=== PATIENT | male | born 1965 | race Caucasian/White ===

== ENCOUNTER → 2017-12-08 | Outpatient (CLI) | payer OTHER ==
--- NOTE | 2017-12-08 11:50 | MR ---
EXAMINATION TYPE: MR lumbar spine wo con DATE OF EXAM: 12/08/2017 COMPARISON: NONE HISTORY: Multiple sclerosis and low back pain TECHNIQUE: Multiplanar, multisequence images of the lumbar spine were acquired. FINDINGS: The lumbar vertebral body alignment is maintained. There is minimal anterior wedge compress ion deformity of the T12 vertebral body without bone marrow edema indicating chronicity. Height loss is less than 10% with no retropulsion. Conus medullaris is unremarkable terminating at L2. T2 hyperin tense and T1 hypointense 8mm right renal lesion is identified within the midpole and incompletely francesco racterized although this could represent a cyst. Multilevel disc desiccation is identified. L1-L2: There is a small left foraminal disc herniation beginning in the lateral recess extending into the left neural foramen creating mild left neural foraminal narrowing in combination with facet arth ropathy. This is superimposed upon a broad-based disc bulge without significant right neural foramina l narrowing or spinal canal stenosis. L2-L3: There is a right paracentral disc extrusion with caudal migration of disc material 9 mm. This creates impression upon the ventral thecal sac and mild spinal canal stenosis in combination with a b road-based disc bulge, facet arthropathy and ligamentum flavum buckling. There is minimal bilateral n eural foraminal narrowing. L3-L4: There is a right paracentral disc herniation that in combination with facet arthropathy and li gamentum flavum buckling create mild right neural foraminal narrowing, minimal left neural foraminal narrowing, and mild spinal canal stenosis. L4-L5: There is a left paracentral disc herniation or posterior broad-based disc bulge with facet art hropathy and ligamentum flavum buckling creating mild spinal canal stenosis, moderate right neural fo raminal narrowing, and mild left neural foraminal narrowing. L5-S1: There is a broad-based disc bulge and facet arthropathy that results in mild right neural fora mo narrowing and moderate left neural foraminal narrowing. No spinal canal stenosis. IMPRESSION: 1. Small left foraminal disc herniation at L1-L2 without significant spinal canal stenosis or neurofo raminal narrowing. 2. Right paracentral disc herniation with caudal migration of disc material 9 mm resulting in mild sp inal canal stenosis and minimal bilateral neural foraminal narrowing. 3. Right paracentral disc herniation at L3-L4 creating mild right neural foraminal narrowing, minimal left neural foraminal narrowing and mild spinal canal stenosis. 4. Left paracentral disc herniation at L4-L5 creating mild spinal canal stenosis, moderate right neur al foraminal narrowing and mild left neural foraminal narrowing. 5. Old minimal wedge compression deformity without retropulsion of the T12 vertebral body with height loss less than 10%. 6. Possible right subcentimeter renal cysts, too small to characterize and incompletely evaluated.
--- NOTE | 2017-12-12 09:16 | MR ---
EXAMINATION TYPE: MR brain wo/w con DATE OF EXAM: 12/08/2017 COMPARISON: Outside brain MRI October 05, 2015. HISTORY: Multiple sclerosis TECHNIQUE: Multiplanar, multisequence images of the brain and brainstem is performed without and with IV contras t, utilizing 6.5 mL intravenous Gadavist gadolinium contrast is administered intravenously. Demyelin ating disease protocol with additional Sagittal Flair sequence performed. FINDINGS: T2 Lesions Present : Yes Approximate Number of Lesions: Difficult to accurately count due to prominent confluent periventricul ar appearance Locations Identified : Deep and periventricular locations Size of Reference Lesion(s): 1. 1.1 cm x 1.0 cm x 0.7 cm on axial image 21 and sagittal image 26 right frontal deep white matter lesion not significant change from prior outside study axial image 17. 2. Stable 7 x 5 mm deep left parietal subcortical lesion axial image 25. Enhancing Lesion(s) Present: No T1 Hypointense Lesion(s) Present: Yes Change from Prior: Confluent right frontal subcortical lesions near axial image 19 are more prominent . A deep anterior left thalamic lesion near internal capsule axial image 16 current study is less pro minent or defined versus prior. Diffusion weighted images demonstrate no evidence of a recent infarct or other diffusion abnormality. There is no worrisome extra-axial fluid collection. The ventricular system and cisternal spaces ar e normal in size and appearance. The brain volume is age appropriate. Midline structures demonstrate normal morphology. The craniocervical junction appears within normal limits. Post contrast images demonstrate no abnormal enhancement. The dural venous sinuses appear pa tent. Mild mucosal thickening involving ethmoid sinuses bilaterally and knee inferior aspect of both maxillary sinuses is noted. The globes are intact bilaterally. IMPRESSION: Moderate to advanced white matter changes redemonstrated most likely on basis of known mu ltiple sclerosis. Some interval change with more prominent areas are noted. This may be related to te chnical differences however. No enhancing lesions are seen.
== END | disposition home or self-care (01) ==
LOC: RADMRIMAIN 10:07
PROVIDERS: ATTEND Psychiatry & Neurology Neurology
DX: M48.061 Spinal stenosis, lumbar region without neurogenic claudication (principal); M99.73 Connective tissue and disc stenosis of intervertebral foramina of lumbar region; M51.26 Other intervertebral disc displacement, lumbar region; R90.82 White matter disease, unspecified; G35 Multiple sclerosis; Z88.5 Allergy status to narcotic agent
CPT/HCPCS: 70553; 72148; A9581

== ENCOUNTER → 2018-02-06 | Outpatient (CLI) | payer MEDICARE, OTHER ==
--- NOTE | 2018-02-06 13:11 | XR ---
EXAMINATION TYPE: XR foot complete RT DATE OF EXAM: 02/06/2018 CLINICAL HISTORY: Right great toe mass TECHNIQUE: Frontal, lateral, and oblique images of the right foot are obtained. COMPARISON: None FINDINGS: There is no acute fracture/dislocation evident in the right foot. The joint spaces in the right foot appear demonstrate very minimal arthropathy with joint space narrowing and small marginal osteophytes of the distal interphalangeal joints and first metatarsophalangeal joint. Polypoid super ficial dorsal medial first digit soft tissue mass measures approximately 9 mm. No osseous irregularit y is seen deep to this to suggest aggressive osseous component. IMPRESSION: There is no acute fracture or dislocation in the right foot. Superficial dorsal medial d istal right first digit soft tissue mass with no evidence of osseous erosion or aggressive osseous co mponent.
== END | disposition home or self-care (01) ==
LOC: RADXRMAIN 11:23
PROVIDERS: ATTEND Podiatrist Foot Surgery
DX: R22.41 Localized swelling, mass and lump, right lower limb (principal)

== ENCOUNTER → 2018-03-18 | Outpatient (CLI) | payer MEDICARE, OTHER ==
--- NOTE | 2018-03-23 07:29 | MR ---
EXAMINATION TYPE: MR foot RT wo con DATE OF EXAM: 03/18/2018 COMPARISON: Radiograph 02/06/2018 HISTORY: 52-year-old male Localized swelling, mass and lump, pain right foot, lateral great toe TECHNIQUE: Multiplanar, multisequence images of the right foot were obtained without IV contrast. FINDINGS: The technologist reports that a single vitamin E capsule was placed on the medial aspect of the great toe to indicate the palpable site. This is placed at the level of the first IP joint. There is no un derlying fluid collection or mass identified. However, along the dorsomedial aspect of the distal great toe, there is an apparent skin-based lesion measuring 1 cm AP by 5 mm wide by 6 mm craniocaudal, refer to axial T1 series 501 image 14, sagittal STIR series 401 image 8, and coronal T1 series 701 image 3. This shows low T1 weighted signal. This has low signal on STIR. Due to motion artifacts and fat saturation inhomogeneity, the area is obscure d on the T2 fat sat sequences. This area appears confined to the skin. The underlying subcutaneous fa t appears maintained. No suspicious bone marrow replacement. There is hallux valgus with mild degenerative change at the first MTP joint. IMPRESSION: 1. Palpable marker placed along the medial aspect of the great toe at the level of the IP joint. No a bnormal mass or fluid collection is seen at this level. 2. However, there is an apparent skin-based lesion measuring 10 x 5 x 6 mm along the dorsomedial aspe ct of the distal great toe just beyond the palpable marker. Clinical correlation recommended as to if this represents the area of interest. As the lesion is obscured on T2 fat sat sequences from patient motion and fat-sat inhomogeneities, it is incompletely characterized. The underlying subcutaneous f at layer and underlying osseous structures are maintained. Further clinical correlation recommended a s to etiology. 3. 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
== END | disposition home or self-care (01) ==
LOC: RADMRIMAIN 09:08
PROVIDERS: ATTEND Podiatrist Foot Surgery
DX: M19.071 Primary osteoarthritis, right ankle and foot (principal); M20.11 Hallux valgus (acquired), right foot; L98.9 Disorder of the skin and subcutaneous tissue, unspecified

== ENCOUNTER → 2018-04-02 | Outpatient (CLI) | payer MEDICARE, OTHER ==
[2018-04-02 13:09] LABS: Basophils % (A) 0 %; Eosinophils # (A) 0.1 k/uL (0-0.7); Eosinophils % (A) 2 %; HCT 44.3 % (39.0-53.0); Lymphocytes % (A) 40 %; MCH 30.4 pg (25.0-35.0); MCHC 33.8 g/dL (31.0-37.0); MCV 89.8 fL (80.0-100.0); Mean Platelet Volume 6.9; Monocytes # (A) 0.5 k/uL (0-1.0); Monocytes % (A) 7 %; Neutrophils # (A) 3.9 k/uL (1.3-7.7); Neutrophils % (A) 50 %; Platelet Count 293 k/uL (150-450); RBC 4.93 m/uL (4.30-5.90); RDW 12.4 % (11.5-15.5); WBC 7.7 k/uL (3.8-10.6)
[2018-04-02 13:19] LABS: ALT 34 U/L (21-72); AST 24 U/L (17-59); Albumin 4.2 g/dL (3.5-5.0); Alkaline Phosphatase 55 U/L (38-126); Anion Gap 7 mmol/L; Blood Urea Nitrogen 12 mg/dL (9-20); Calcium 8.9 mg/dL (8.4-10.2); Carbon Dioxide 26 mmol/L (22-30); Chloride 105 mmol/L (98-107); Glucose 110 mg/dL (74-99); Potassium 4.7 mmol/L (3.5-5.1); Sodium 138 mmol/L (137-145); Total Bilirubin 0.6 mg/dL (0.2-1.3); Total Protein 6.6 g/dL (6.3-8.2)
[2018-04-02 19:06] LABS: Vitamin D 25 Hydroxy 25.8 ng/mL (30.0-100.0)
== END | disposition home or self-care (01) ==
LOC: LABWHC1 10:29
PROVIDERS: ATTEND Nurse Practitioner Acute Care
DX: G35 Multiple sclerosis (principal); E55.9 Vitamin D deficiency, unspecified; R53.83 Other fatigue
CPT/HCPCS: 36415; 80053; 82306; 82607; 85025

== ENCOUNTER → 2018-06-02 | Outpatient (CLI) | payer MEDICARE, OTHER ==
[2018-06-02 18:18] LABS: Hepatitis B Core IgM Non-Reactive (Non-Reactive)
[2018-06-02 18:19] LABS: Hepatitis B Surface AB- Quant 3.5 mIU/mL
== END | disposition home or self-care (01) ==
LOC: LABWHC1 10:16
PROVIDERS: ATTEND Nurse Practitioner Acute Care
DX: G35 Multiple sclerosis (principal)
CPT/HCPCS: 36415; 86704; 86705; 86706; 87340

== ENCOUNTER → 2019-03-23 | Outpatient (CLI) | payer MEDICARE, OTHER ==
--- NOTE | 2019-03-23 15:54 | US ---
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 EXAM MEASUREMENTS: Right Kidney: 9.8 x 3.7 x 4.3 cm Left Kidney: 9.7 x 4.9 x 5.1 cm Post Void Residual Volume: 149 mL Right Kidney: No hydronephrosis or masses seen Left Kidney: No hydronephrosis or masses seen, inferior pole obscured by bowel gas Bladder: wnl Bilateral Jets seen: yes Normal Post Void Residual: No, 149 mL There is no evidence for hydronephrosis at this point in time. No nephrolithiasis is seen. No george s are identified. The urinary bladder is anechoic. Bilateral ureteral jets are seen. IMPRESSION: 1. No hydronephrosis nor nephrolithiasis although the inferior pole of the left kidney is obscured by bowel gas. 2. Abnormal post void residual of the urinary bladder with postvoid volume of 149 mL.
== END | disposition home or self-care (01) ==
LOC: RADUSWWP 15:13
PROVIDERS: ATTEND Family Medicine
DX: N39.43 Post-void dribbling (principal); Z88.0 Allergy status to penicillin; Z88.5 Allergy status to narcotic agent
CPT/HCPCS: 76770

== ENCOUNTER → 2021-05-09 | Outpatient (CLI) | payer MEDICARE, OTHER ==
[2021-05-09 20:03] LABS: Basophils # (A) 0.05 X 10*3/uL (0.00-0.10); Basophils % (A) 0.6 %; Eosinophils % (A) 1.2 %; HCT 44.1 % (39.6-50.0); HGB 15.2 g/dL (13.0-17.0); Lymphocytes % (A) 27.4 %; MCH 31.1 pg (27.0-32.0); MCHC 34.5 g/dL (32.0-37.0); MCV 90.4 fL (80.0-97.0); Mean Platelet Volume 10.5 fL (9.5-12.2); Monocytes # (A) 0.83 X 10*3/uL (0.20-1.00); Monocytes % (A) 9.9 %; Neutrophils # (A) 5.07 X 10*3/uL (1.80-7.70); Neutrophils % (A) 60.4 %; Platelet Count 337 X 10*3/uL (140-440); RBC 4.88 X 10*6/uL (4.40-5.60); RDW 12.8 % (11.5-14.5); WBC 8.39 X 10*3/uL (4.50-10.00)
[2021-05-09 21:27] LABS: Erythrocyte Sedimentation Rate 5 mm/Hr (0-20)
[2021-05-10 15:57] LABS: African American GFR (CKD) 109.5 (60.0-200.0); Albumin 4.6 g/dL (3.80-4.90); Albumin/Globulin Ratio 2.09 (1.60-3.17); Anion Gap 9.3 mmol/L (4.00-12.00); BUN/Creat Ratio 12.22 Ratio (12.00-20.00); Calcium 9.4 mg/dL (8.7-10.3); Carbon Dioxide 23.7 mmol/L (21.6-31.8); Globulin 2.2 g/dL (1.6-3.3); Non-African American GFR(CKD) 94.5 (60.0-200.0); Potassium 4.7 mmol/L (3.5-5.5); Total Bilirubin 0.6 mg/dL (0.2-1.2); Total Protein 6.8 g/dL (6.2-8.2)
== END | disposition home or self-care (01) ==
LOC: LABWHC1 12:19
PROVIDERS: ATTEND Nurse Practitioner Acute Care
DX: I49.9 Cardiac arrhythmia, unspecified (principal); E55.9 Vitamin D deficiency, unspecified; E53.9 Vitamin B deficiency, unspecified; G35 Multiple sclerosis; M79.7 Fibromyalgia
CPT/HCPCS: 36415; 80053; 82085; 82306; 82550; 82607; 85025; 85652; 93005

== ENCOUNTER 2021-08-23 16:40 | Emergency (ER) | payer MEDICARE, OTHER ==
[2021-08-23] MEDS ORDERED: ACETAMINOPHEN TAB 500 MG TAB PO STA (17:43)
[2021-08-23] MEDS ORDERED: ONDANSETRON 4 MG/2 ML VIAL IVP STA (20:58)
[2021-08-23] MEDS ORDERED: KETOROLAC 15 MG/ML 1 ML VIAL IVP STA (20:58)
[2021-08-23] MEDS ORDERED: SODIUM CHLORIDE 0.9% 1,000 ML IV STA (20:58)
--- NOTE | 2021-08-23 21:02 | ED ---
General Adult HPI - General Chief complaint: Weakness Stated complaint: Weakness, Nausea Time Seen by Provider: 08/23/21 20:26 Source: patient, RN notes reviewed Mode of arrival: wheelchair Limitations: physical limitation - History of Present Illness Initial comments: 56-year-old male presents to the emergency department for evaluation of fatigue and nausea that has progressively worsened over the past few days. Patient also reports decreased oral intake over the past 2 days due to persistent nausea. Complains of some shortness of breath with activity, though chest pain or difficulty breathing. States his roommate tested positive for Covid appr oximately 3 weeks ago and patient is concerned that he may also have it. States he tripped and fell at home prior to arrival landing on an outstretched left arm. Complains of mild left wrist and hand pain, though no deformity. Denies fever, chills, headache, dizziness, difficulty breathing, abdominal pain, diarrhea, or dysuria. - Related Data Previous Rx's Medication Instructions Recorded Ondansetron Odt [Zofran Odt] 4 mg PO Q8HR PRN #10 tab 08/23/21 Allergies Allergy/AdvReac Type Severity Reaction Status Date / Time No Known Allergies Allergy Verified 08/23/21 17:41 Review of Systems ROS Statement: Those systems with pertinent positive or pertinent negative responses have been documented in the HPI. ROS Other: All systems not noted in ROS Statement are negative. Past Medical History Additional Past Medical History / Comment(s): ms History of Any Multi-Drug Resistant Organisms: None Reported Past Surgical History: Appendectomy, Orthopedic Surgery Past Psychological History: No Psychological Hx Reported Smoking Status: Current every day smoker Past Alcohol Use History: None Reported Past Drug Use History: None Reported General Exam Limitations: physical limitation General appearance: alert, in no apparent distress, other (Well-developed, well- nourished male in no acute distress. Initial temperature 100.7, pulse 119, respirations 18, blood pressure 132/53, pulse ox 98% on room air.) ENT exam: Present: normal exam, normal oropharynx, mucous membranes moist Respiratory exam: Present: normal lung sounds bilaterally. Absent: respiratory distress, wheezes, rales, rhonchi, stridor Cardiovascular Exam: Present: regular rate, normal rhythm, normal heart sounds. Absent: systolic murmur, diastolic murmur, rubs, gallop, clicks GI/Abdominal exam: Present: soft, normal bowel sounds. Absent: distended, tenderness, guarding, rebound, rigid Left Forearm Wrist exam: Present: normal inspection, full ROM, tenderness (Tenderness upon palpation across the dorsal surface of the hand near the wrist). Absent: swelling, laceration, ecchymosis, deformity, tenderness over anatomical snuff box, pain with axial thumb loading Neuro motor exam: Present: wrist extension intact, thumb opposition intact, fingers 2-5 abduction intact Vascular: Present: normal capillary refill, radial pulse, brachial pulse, ulnar pulse. Absent: vascular compromise, Pallo Neurological exam: Present: alert, oriented X3, CN II-XII intact, other (Ambulatory with a cane) Psychiatric exam: Present: normal affect, normal mood Skin exam: Present: warm, dry, intact, normal color. Absent: rash Course Vital Signs 08/23/21 08/23/21 08/23/21 17:35 21:00 22:00 Temperature 100.7 F H 99.2 F Pulse Rate 119 H 99 105 H Respiratory 18 18 16 Rate Blood Pressure 132/53 169/86 151/88 O2 Sat by Pulse 98 97 97 Oximetry - Reevaluation(s) Reevaluation #1: 08/23/21 22:30 Patient provided with snack and is tolerating oral intake without difficulty. Medical Decision Making - Medical Decision Making 56-year-old male with a past medical history of MS who receives steroid infusions presents to the emergency department for evaluation of fatigue and nausea. Upon exam, patient is resting comfortably and is in no acute distress. His temperature and heart rate were mildly elevated initially, but improved with hydration and antipyretic. Room air saturation 97% or greater on room air. No evidence of increased work of breathing. Patient does complain of nausea and poor oral intake therefore was given IV fluids and Zofran with improvement. Laboratory studies were obtained and show mild dehydration. Chest x-ray was obtained showing scattered patchy airspace opacities concerning for multifocal pneumonia. Patient did test positive for Covid. He is a candidate for the monoclonal antibody infusion as he has an immune compromising condition. Risks and benefits were discussed with patient and he is agreeable. Tolerated infusion without difficulty or adverse reaction. Is also tolerating oral intake without any nausea or vomiting. Patient's left wrist and hand were also evaluated for complaint of mild pain status-post fall. No obvious deformity; ROM intact. X-rays of the left wrist and hand were obtained showing no acute osseous or articular abnormality seen in the hand or wrist. Patient will be discharged home with a prescription for Zofran. Encouraged to maintain hydration status as well as mobility. Instructed to follow-up with his PCP via video or telephone. Return parameters were discussed in detail. Patient verbalizes understanding and agrees with this plan. - Lab Data Result diagrams: 08/23/21 21:34 08/23/21 21:34 Lab Results 08/23/21 08/23/21 08/23/21 Range/Units 17:47 21:34 21:34 WBC 7.1 (3.8-10.6) k/uL RBC 4.98 (4.30-5.90) m/uL Hgb 15.5 (13.0-17.5) gm/dL Hct 45.2 (39.0-53.0) % MCV 90.8 (80.0-100.0) fL MCH 31.1 (25.0-35.0) pg MCHC 34.3 (31.0-37.0) g/dL RDW 13.2 (11.5-15.5) % Plt Count 167 (150-450) k/uL MPV 9.0 Neutrophils % 78 % Lymphocytes % 14 % Monocytes % 7 % Eosinophils % 0 % Basophils % 0 % Neutrophils # 5.5 (1.3-7.7) k/uL Lymphocytes # 1.0 (1.0-4.8) k/uL Monocytes # 0.5 (0-1.0) k/uL Eosinophils # 0.0 (0-0.7) k/uL Basophils # 0.0 (0-0.2) k/uL Sodium 133 L (137-145) mmol/L Potassium 4.3 (3.5-5.1) mmol/L Chloride 98 (98-107) mmol/L Carbon Dioxide 20 L (22-30) mmol/L Anion Gap 15 mmol/L BUN 21 H (9-20) mg/dL Creatinine 1.11 (0.66-1.25) mg/dL Est GFR (CKD-EPI)AfAm 85 (>60 ml/min/1.73 sqM) Est GFR (CKD-EPI)NonAf 74 (>60 ml/min/1.73 sqM) Glucose 113 H (74-99) mg/dL Calcium 8.5 (8.4-10.2) mg/dL Coronavirus (PCR) Detected A (Not Detectd) - Radiology Data Radiology results: report reviewed, image reviewed Two-view chest x-ray was obtained. Report was reviewed in its entirety. Impression per Dr. Bates is scattered patchy airspace opacities mild interstitial prominence concerning for multifocal pneumonia. No pneumothorax or large effusion. Cardio mediastinal silhouette is normal in appearance. No acute osseous abnormality seen. X-rays of the left wrist and hand were obtained. Reports were reviewed in their entirety. Impression per Dr. Bates is no acute osseous or articular abnormality seen in the hand or wrist. Mild soft tissue swelling noted over the wrist. Disposition Clinical Impression: COVID-19, Nausea Disposition: HOME SELF-CARE Condition: Stable Instructions (If sedation given, give patient instructions): Coronavirus Disease 2019 (COVID-19) Additional Instructions: Increase your intake of fluids. May take Zofran for nausea. Treat symptoms such as body aches and fever with tylenol or motrin. You should isolate for 10 days. Follow up with your PCP for a recheck via telephone or video visit. Return to the Emergency Department with any new, worsening, or concerning symptoms. Prescriptions: Ondansetron Odt [Zofran Odt] 4 mg PO Q8HR PRN #10 tab PRN Reason: Nausea Is patient prescribed a controlled substance at d/c from ED?: No Referrals: David Duncan MD [Primary Care Provider] - 1-2 days
--- NOTE | 2021-08-23 21:28 | XR ---
EXAMINATION TYPE: XR chest 2V DATE OF EXAM: 08/23/2021 COMPARISON: NONE HISTORY: 56 years Male. STUDY INDICATION GIVEN: shortness of breath, COVID + . TECHNIQUE: Frontal and lateral chest radiographs. IMPRESSION: Scattered patchy airspace opacities mild interstitial prominence concerning for multifocal pneumonia. No pneumothorax or large effusion. The cardiomediastinal silhouette is normal in appearance. No acute osseous abnormality seen.
--- NOTE | 2021-08-23 21:31 | XR ---
EXAMINATION TYPE: XR hand complete LT, XR wrist complete LT DATE OF EXAM: 08/23/2021 COMPARISON: NONE HISTORY: 56 years Male. STUDY INDICATION GIVEN: left wrist and hand pain s/p fall . TECHNIQUE: PA, oblique and lateral left hand radiographs. PA, oblique, lateral and navicular radiogra phs of the left wrist IMPRESSION: No acute osseous or articular abnormalities seen in the hand or wrist. Mild soft tissue swelling noted over the wrist.
[2021-08-23 21:55] LABS: Calcium 8.5 mg/dL (8.4-10.2); Potassium 4.3 mmol/L (3.5-5.1)
[2021-08-23 21:57] LABS: Basophils % (A) 0 %; Eosinophils % (A) 0 %; HCT 45.2 % (39.0-53.0); HGB 15.5 gm/dL (13.0-17.5); Lymphocytes % (A) 14 %; MCH 31.1 pg (25.0-35.0); MCHC 34.3 g/dL (31.0-37.0); MCV 90.8 fL (80.0-100.0); Monocytes # (A) 0.5 k/uL (0-1.0); Monocytes % (A) 7 %; Neutrophils # (A) 5.5 k/uL (1.3-7.7); Neutrophils % (A) 78 %; Platelet Count 167 k/uL (150-450); RBC 4.98 m/uL (4.30-5.90); RDW 13.2 % (11.5-15.5); WBC 7.1 k/uL (3.8-10.6)
[2021-08-23] MEDS ORDERED: SODIUM CHLORIDE 0.9% 50 ML IVPB ONE (23:15)
[2021-08-23] MEDS ORDERED: BAMLANIVIMAB (EUA) 700 MG, ETESEVIMAB (EUA) 1,400 MG in SODIUM CHLORIDE 0.9% 100 ML IVPB ONE (23:15)
[2021-08-24 00:44] VITALS: BP 113/63; PULSE 75; RESP 20; TEMP 97.7
== END 2021-08-24 01:10 | disposition home or self-care (01) ==
LOC: EC 16:40
DX: U07.1 COVID-19 (principal); R11.0 Nausea; F17.200 Nicotine dependence, unspecified, uncomplicated; W01.0XXA Fall on same level from slipping, tripping and stumbling without subsequent striking against object, initial encounter; Y92.019 Unspecified place in single-family (private) house as the place of occurrence of the external cause
CPT/HCPCS: 36415; 80048; 85025; 87635; 73110; 73130; 71046; 99285; 96374; 96375; 96361 ×2; J2405; J1885; J3490